=== PATIENT | female | born 1980 | race Caucasian/White ===

== ENCOUNTER 2024-10-15 11:24 | Emergency (ER) | payer MEDICAID, SELFPAY ==
[2024-10-15 12:04] VITALS: BP 128/71; PULSE 72; RESP 20; TEMP 36.7; O2SAT 98; BMI 34.7
--- NOTE | 2024-10-15 12:27 | EXP.UTC ---
Discharge Plan Disposition Patient Disposition: Home, Self-Care Condition: Good Prescriptions Prescriptions: New cyclobenzaprine 10 mg Tablet 10 mg PO BID PRN (Reason: Muscle Spasm) Qty: 20 0RF methylprednisolone 4 mg Tablets,Dose Pack 4 mg PO DIRECTED 6 Days Qty: 21 0RF Rx Instructions: Take 1 pack as directed for 6 days No Action metronidazole 500 mg tablet 500 mg PO DAILY levothyroxine 50 mcg tablet 50 mcg PO DAILY hydroxyzine HCl 25 mg tablet 25 mg PO DAILY acyclovir 200 mg capsule 200 mg PO DAILY metoprolol succinate 25 mg tablet extended release 24 hr 25 mg PO DAILY prazosin 2 mg capsule 2 mg PO DAILY escitalopram oxalate 20 mg tablet 20 mg PO DAILY Referrals Follow up/Referrals: Provider,Referral, MD [Primary Care Provider] - See instructions Activity Restrictions/Add. Instructions Additional Instructions/Restrictions: Go home and rest. It would be best if you rested tomorrow too. No heavy lifting & No twisting for the next few days. Take the oral medications as directed. The muscle relaxer (cyclobenzaprine--Flexeril) will make you drowsy, so don't drive or operate heavy machinery after taking it. Don't start the oral steroids (medrol dose pack) until tomorrow, since you had the shots in here today. Follow up with your regular doctor. GO TO THE ER FOR ANY WORSENING SYMPTOMS OR CONCERN, ESPECIALLY BOWEL OR BLADDER ISSUES, SADDLE AREA NUMBNESS, FEVER, ETC Clinical Impressions Clinical Impression: Low back pain, Back strain Stand Alone Forms Stand Alone Forms: Work/School Release Instructions Patient Instructions: Low Back Pain, DI for Low Back Pain, Cyclobenzaprine, Methylprednisolone, Ketorolac Injection, Dexamethasone Injection Print Language Print Language: Maltese Discharge ED Provider: Cristi Perez [facility] [place] General Stated complaint: back pain Mode of Arrival: Ambulatory Source of Information: Patient Time Seen by Provider: 10/15/24 12:25 Description of Symptoms (Recalled from Triage Doc. by RN): LOWER BACK PAIN BILATERAL, SOMETIMES GOES DOWN LEG WHEN SITTING, 7/10 PAIN HEENT Symptoms (Recalled from RN notes): No Resp Symptoms (Recalled from RN notes): No Skin Symptoms (Recalled from RN notes): No MS Symptoms (Recalled from RN notes): Yes Functional Status (Recalled from RN notes): WNL History of Present Illness Provider Complaint: She states that since yesterday she has had low back pain. She denies any fall or known injury. Related Data Home Medications ?Medication ?Instructions ?Recorded ?Confirmed acyclovir 200 mg capsule 200 mg PO DAILY 10/15/24 10/15/24 escitalopram oxalate 20 mg tablet 20 mg PO DAILY 10/15/24 10/15/24 hydroxyzine HCl 25 mg tablet 25 mg PO DAILY 10/15/24 10/15/24 levothyroxine 50 mcg tablet 50 mcg PO DAILY 10/15/24 10/15/24 metoprolol succinate 25 mg 25 mg PO DAILY 10/15/24 10/15/24 tablet,extended release 24 hr metronidazole 500 mg tablet 500 mg PO DAILY 10/15/24 10/15/24 prazosin 2 mg capsule 2 mg PO DAILY 10/15/24 10/15/24 Previous Rx's ?Medication ?Instructions ?Recorded cyclobenzaprine 10 mg tablet 10 mg PO BID PRN Muscle Spasm #20 10/15/24 tabs methylprednisolone 4 mg tablets in 4 mg PO DIRECTED 6 days #21 tabs 10/15/24 a dose pack Allergies Allergy/AdvReac Type Severity Reaction Status Date / Time No Known Allergies Allergy Verified 10/15/24 12:07 Worker's Comp Is this a Worker's Comp case?: No [facility] Disclaimer: The information contained in this section may have been updated after the patient was seen, as this information can be updated by other users. Social History Smoking Status: Never smoker alcohol intake: never current occupational status: employed Travel in the last 8 weeks: None ROS Obtained: Yes All systems reviewed & no additional complaints except as documented Constitutional Constitutional: Denies chills and Denies fever(s) Eyes Eyes: Denies eye discharge ENT Ears, Nose, Mouth, and Throat: Denies dizziness, Denies otalgia and Denies sore throat Cardiovascular Cardiovascular: Denies chest pain Respiratory Respiratory: Denies shortness of breath, Denies chest congestion, Denies cough, Denies stridor and Denies wheezing Gastrointestinal Gastrointestingal: Denies nausea or vomiting Musculoskeletal Musculoskeletal: Reports system reviewed and no additional complaints, except as documented and Denies arthralgias Integumentary/Breasts Skin/Breast: Denies rash Neurologic Neurologic: Denies dizziness and Denies paresthesias Allergic/Immunologic Allergic/Immunologic: Denies wheezing Physical Exam General General appearance: alert and in no apparent distress Head Head exam: atraumatic, normocephalic and normal inspection Eye Eye exam: Present normal appearance, PERRL and EOMI ENT ENT exam: Present normal exam, normal oropharynx, mucous membranes moist, TM's normal bilaterally and normal external ear exam Neck Neck exam: Present normal inspection, full ROM and trachea midline; Absent meningismus or lymphadenopathy Chest Chest inspection: Present normal inspection and symmetric chest wall rise; Absent tenderness Respiratory Respiratory exam: Present normal lung sounds bilaterally; Absent respiratory distress Cardiovascular Cardiovascular exam: Present regular rate and normal rhythm; Absent JVD Abdominal Exam Abdominal exam: Present soft and normal bowel sounds; Absent distention, tenderness or guarding Extremities Exam Extremities exam: Present normal inspection, full ROM and normal capillary refill; Absent calf tenderness Back Exam Back exam: Present normal inspection; Absent tenderness Neurological Exam Neurological exam: Present alert and oriented X3 Psychiatric Psychiatric exam: Present normal affect and normal mood Skin Skin exam: Present warm, dry, intact and normal color Lymphatic Lymphatic Findings: no adenopathy Medical Decision Making Medical Records Medical records reviewed: No I reviewed the patient's medical records. Screening: Per USPSTF and CDC recommendations, given the prevalence of disease in our region, it is our hospital?s policy to screen for HIV and viral Hepatitis for all patients aged 18 and over and those with ongoing risk factors. Maximilian Inquiry Pt receiving controlled substance: No Vital Signs: 10/15/24 12:04 Temperature 98.0 F Temperature Source Oral Pulse Rate [Left Radial] 72 Respiratory Rate 20 Blood Pressure [Left Arm] 128/71 Blood Pressure Mean [Left Arm] 90 02 Sat by Pulse Oximetry 98
[2024-10-15] MEDS: KETOROLAC 60MG/2ML VIAL 30 MG IM (13:04)
[2024-10-15] MEDS: DEXAMETHASONE 4MG/ML 1ML VIAL 8 MG IM (13:04)
[2024-10-15 14:16] VITALS: BP 128/71; PULSE 72; RESP 20; TEMP 36.7
== END 2024-10-15 14:17 | disposition home or self-care (01) ==
PROVIDERS: Emergency Provider Nurse Practitioner Family
DX: S39.012A Strain of muscle, fascia and tendon of lower back, initial encounter (principal)
CPT/HCPCS: 99212; G0381; J1100; J1885